=== PATIENT | female | born 1990 | race Caucasian/White ===

== ENCOUNTER 2020-07-11 10:37 | Emergency (ER) | payer OTHER ==
[2020-07-11] MEDS ORDERED: IBUPROFEN 600 MG TABLET PO STA (10:58)
--- NOTE | 2020-07-11 11:09 | ED Physician Documentation ---
History of Present Illness - Stated complaint Stated Complaint: L HAND PX - Chief complaint Chief Complaint: Ext Problem - History obtained from History obtained from: Patient - Additonal information Additional information: 29-year-old woman, previously healthy presents with left first finger pain, sudden in onset while opening a truck bed this morning, occurring concomitant with hyperflexion of the thumb, radiating from the PIP joint to the wrist, worse with flexion and opposition, mild, without associated sensory loss or motor deficit. No other injuries or complaints at this time. Review of Systems Skin: denies: Abrasion (s), Laceration (s) Musculoskeletal: reports: Extremity pain, Joint pain Neurologic: denies: Focal weakness, Numbness PD PAST MEDICAL HISTORY - Past Medical History Past Medical History: Yes Cardiovascular: None Respiratory: Pneumonia Neuro: None Endocrine/Autoimmune: None GI: None BIOMED TECH: None : None HEENT: Chronic vision loss Psych: None Musculoskeletal: None Derm: None - Past Surgical History Past Surgical History: No - Present Medications Home Medications: Ambulatory Orders Medication Instructions Recorded Confirmed No Known Home Medications 07/11/20 07/11/20 - Allergies Allergies/Adverse Reactions: Allergies Allergy/AdvReac Type Severity Reaction Status Date / Time No Known Drug Allergies Allergy Verified 07/11/20 10:44 - Social History Does the pt smoke?: No Smoking Status: Never smoker Does the pt drink ETOH?: No Does the pt have substance abuse?: No - Immunizations Immunizations are current?: Yes - POLST Patient has POLST: No PD ED PE NORMAL - Vitals Vital signs reviewed: Yes - General General: Alert and oriented X 3, No acute distress, Well developed/nourished - Derm Derm: Normal color, Warm and dry - Extremities Extremities: No deformity, Other (Left first finger tender with flexion. Tender to palpation at PIP joint and thenar eminence. Tender with opposition of thumb and fifth finger. Normal strength, movement, sensation. Normal capillary refill. 2+ bilateral radial pulses. Mild swelling noted to thenar eminence.) - Neuro Neuro: Alert and oriented X 3 - Psych Psych: Normal mood, Normal affect Results - Vitals Vitals: Vital Signs - 24 hr 07/11/20 10:41 Temperature 36.4 C L Heart Rate 60 Respiratory 16 Rate Blood Pressure 115/72 O2 Saturation 100 Oxygen O2 Source Room air PD MEDICAL DECISION MAKING - ED course ED course: 29-year-old woman presents with likely ligament strain. Discussed rice therapy. Return precautions given. Patient will follow up with orthopedics if no improvement. Departure - Departure Clinical Impression: Pain in finger Condition: Good Instructions: ED RICE Follow-Up: Shantanu Flynn MD [Provider Admit Priv/Credential] - Comments: You were seen in the emergency department for thumb pain that is likely due to ligament strain. Take ibuprofen 600 mg (Motrin regular strength 3 pills) every 6 hours as needed for pain. Follow the instructions we discussed for symptom care. Return to the emergency department if you have new or worsening symptoms or other concerns. Follow-up with orthopedics if you do not have improvement in 1 week.
--- NOTE | 2020-07-11 11:14 | XRAY Report ---
PROCEDURE: Finger(s) LT INDICATIONS: thumb injury on truck pain TECHNIQUE: PA view of the hand and 2 views of the thumb acquired. COMPARISON: None. FINDINGS: Bones: No acute fractures or dislocations. No suspicious bony lesions. Soft tissues: No suspicious soft tissue calcifications. IMPRESSION: No acute osseous abnormality. If there is clinical concern or persistent symptoms, further evaluation with repeat radiographs or advanced imaging (e.g. CT, MRI) may be obtained for further evaluation. Reviewed by: Onel Blas MD on 07/11/2020 11:13 AM [facility] Approved by: Onel Blas MD on 07/11/2020 11:13 AM PST Station ID: [id number]
[2020-07-11 12:12] VITALS: BP 118/64
== END 2020-07-11 12:12 | disposition home or self-care (01) ==
LOC: ED 10:37
DX: M79.645 Pain in left finger(s) (principal); X50.9XXA Other and unspecified overexertion or strenuous movements or postures, initial encounter; Y93.89 Activity, other specified
CPT/HCPCS: 73140; 99282; 99283; A9270

== ENCOUNTER 2022-02-04 08:27 | Outpatient (CLI) | payer OTHER ==
[2022-02-04 09:13] LABS: GTT GLUCOSE,FASTING 78 mg/dL (70-100)
== END 2022-02-04 08:28 | disposition home or self-care (01) ==
LOC: LAB 08:27
PROVIDERS: ATTEND Nurse Practitioner Obstetrics & Gynecology
DX: O99.810 Abnormal glucose complicating pregnancy (principal)
CPT/HCPCS: 36415; 82951; 82952

== ENCOUNTER 2022-04-18 10:50 | Outpatient (CLI) | payer OTHER ==
[2022-04-18 19:50] LABS: RESPIRATORY SYNCYTIAL VIRUS Negative (Negative)
== END 2022-04-18 23:59 | disposition home or self-care (01) ==
LOC: LAB.N 10:50
PROVIDERS: ATTEND Physician Assistant
DX: R05.9 Cough, unspecified (principal)
CPT/HCPCS: 87280

== ENCOUNTER 2022-04-26 07:26 | Inpatient (IN) | payer OTHER ==
[2022-04-26] MEDS ORDERED: TERBUTALINE 1 MG/ML VIAL SUBQ PRN (08:36)
[2022-04-26] MEDS ORDERED: NIFEdipine 10 MG CAPSULE PO PRN (08:36)
[2022-04-26] MEDS ORDERED: OXYTOCIN/SODIUM CHLORIDE 500 ML IV PRN (08:36)
[2022-04-26] MEDS ORDERED: lidocaine 1% 20 ML MDV ID PRN (08:36)
[2022-04-26] MEDS ORDERED: TRANEXAMIC ACID IN NACL 1,000 MG/100 ML BAG IV PRN (08:36)
[2022-04-26] MEDS ORDERED: hydrALAZINE INJ 20 MG/ML VIAL IVP PRN ×2 (08:36)
[2022-04-26] MEDS ORDERED: CARBOPROST TROMETHAMINE 250 MCG/ML AMP IM PRN (08:36)
[2022-04-26] MEDS ORDERED: fentaNYL 100 MCG/2 ML VIAL IVP PRN (08:36)
[2022-04-26] MEDS ORDERED: miSOPROStoL 200 MCG TABLET BC PRN (08:36)
[2022-04-26] MEDS ORDERED: LABETALOL 20 MG/4 ML SYRINGE IVP PRN ×3 (08:36)
[2022-04-26] MEDS ORDERED: SODIUM CHLORIDE FLUSH 0.9% 10 ML SYRINGE IVP PRN (08:36)
[2022-04-26] MEDS ORDERED: METHYLERGONOVINE 0.2 MG/ML VIAL IM PRN (08:36)
[2022-04-26] MEDS ORDERED: OXYTOCIN 10 UNIT/ML VIAL IM PRN (08:36)
[2022-04-26] MEDS ORDERED: miSOPROStoL 200 MCG TABLET PR PRN (08:36)
--- NOTE | 2022-04-26 08:50 | HISTORY & PHYSICAL EXAMINATION ---
Admit History - Visit Reason Visit Reason: Other - : 2 Parity: 1 Premature: 0 Ectopic: 0 : 1 Care: positive: [facility] Risk/History: positive: None Complications This : positive: None Smoking Status: Never smoker - Mother's Labs Mother's Blood Type: positive: A Mother's RH: positive: Positive GBS: positive: Group B Strep Positive Rubella Status: positive: Immune Meds/Allgy - Home Medications Home Medications: Ambulatory Orders Medication Instructions Recorded Confirmed No Known Home Medications 07/11/20 07/11/20 - Allergies Allergies/Adverse Reactions: Allergies Allergy/AdvReac Type Severity Reaction Status Date / Time No Known Drug Allergies Allergy Verified 07/11/20 10:44 Review of Systems - Constitutional Constitutional: denies: Fatigue, Fever, Chills - Eyes Eyes: denies: Blurred vision, Spots in vision, Dipolpia - Cardiovascular Cariovascular: denies: Irregular heart rate, Palpitations, Chest pain, Edema - Respiratory Respiratory: denies: Cough, Wheezing, SOB at rest - Gastrointestinal Gastrointestinal: denies: Constipation, Diarrhea, Nausea, Vomiting - Genitourinary Genitourinary: denies: Dysuria - Integumentary Integumentary: denies: Rash, Pruritis - Neurological Neurological: denies: Headache Physical - Abdominal Exam Vital Signs: Temp Pulse Resp BP Pulse Ox O2 Flow Rate 37.1 C 04/26/22 07:39 Contraction Frequency (min/apart): occasional Contraction Intensity: positive: Mild Uterine Resting Tone: positive: Soft - Monitoring Heart Rate Baseline: 150 Strip Review: positive: Category I - Presentation Presentation: positive: Vertex - Vaginal Exam Membranes: positive: Membranes intact - Speculum Exam Speculum Exam Performed: positive: No Plan for Labor - Plan For Labor I expect patient to be DC'd or transferred within 96 hours.: Yes Plan for Labor: HPI: This 31yo @ 39.2wks gestation by LMP c/w 10.4wk U/S presented on 04/26/2022 for medical induction of labor secondary to A1 gestational diabetes. She denies vaginal bleeding, leakage of fluid or contractions. She reports +FM. She has maintained tight glycemic control for the duration of her with occasional blood glucose values which are mildly elevated. She has been able to manage with diet only and did not require medication. She has been a [facility] for the duration of her which aside from A1GDM has remained uncomplicated. She had a growth ultrasound at 32wks which was WNL (EFW 83%tile). She will be admitted for active management with pre-induction cervical ripening with misoprostol. SVE was deferred. She is supported by her and mother today. 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 Last pap unsure, 1-2 years ago, No hx of abnormals. Medical Hx: Depression, anxiety, PCS, psoriasis, basal cell carcinoma Surgical Hx: none Family Hx: Father- Skin CA Meds: PNV, zofran, diclegis Allergies: None known Social: , lives with and daughter. Works as a [employer]. [employer] [place]. No tobacco, ETOH or recreational drug use. Caffeine intake minimal. course: A positive, antibody negative Rubella immune; varicella non-immune GBS positive on urine in first trimester Initial U/S @ 10.4wks c/w LMP dating FAS WNL; Posterior placenta, no previa. Size c/w dating 3VC. Glucola 1hr: 149 3hr: 78,168,155,159 Growth U/S @ 32.6wks WNL. EFW 83%tile. Physical exam: Normocephalic, atraumatic Heart RRR w/o M/G/R Lungs CTAB Abdomen gravid, soft, nontender EFW 3800g FHR baseline 150, moderate variability, + accels, no decels Contractions palpate mild occasionally with soft resting tone SVE deferred Bilateral LE's trace edema Mood is good Assessment: 31yo @ 39.1wks gestation by LMP c/w 10.4wk U/S A1GDM GBS positive FHR Category I Plan: Admit for active management/medical induction labor 50mcg BC misoprostol for pre-induction cervical ripening Continuous monitoring Consider AROM in 4hrs with SVE Initiate ampicillin for GBS prophylaxis per protocol with onset of contractions. Anticipate .
[2022-04-26] MEDS: miSOPROStoL 100 MCG TABLET BC SCH ×2 (08:53→13:52)
[2022-04-26] MEDS ORDERED: LACTATED RINGERS 1,000 ML IV SCH (09:00)
[2022-04-26] MEDS ORDERED: AMPICILLIN 2 GM in SODIUM CHLORIDE 0.9% MINIBAG 100 ML IV ONE (09:19)
[2022-04-26 09:44] LABS: BASOPHILS # (AUTO) 0.1 10^3/uL (0.0-0.1); BASOPHILS % (AUTO) 0.6 %; EOSINOPHILS # (AUTO) 0.1 10^3/uL (0.0-0.7); EOSINOPHILS % (AUTO) 0.7 %; HCT - HEMATOCRIT 29.1 % (37.0-47.0); HGB - HEMOGLOBIN 9.5 g/dL (12.0-16.0); LYMPHOCYTES # (AUTO) 1.6 10^3/uL (1.5-3.5); LYMPHOCYTES % (AUTO) 16.3 %; MEAN CORPUSCULAR HEMOGLOBIN 26.8 pg (27.0-31.0); MEAN CORPUSCULAR HGB CONC 32.6 g/dL (32.0-36.0); MEAN PLATELET VOLUME 9.8 fL (7.9-10.8); MONOCYTES # (AUTO) 0.5 10^3/uL (0.0-1.0); MONOCYTES % (AUTO) 4.6 %; NEUTROPHILS # (AUTO) 7.4 10^3/uL (1.5-6.6); PLT - PLATELET COUNT 240 10^3/uL (130-450); RED BLOOD COUNT 3.55 10^6/uL (4.20-5.40); RED CELL DISTRIBUTION WIDTH 14.6 % (12.0-15.0); WHITE BLOOD COUNT 9.8 x10^3/uL (4.8-10.8)
--- NOTE | 2022-04-26 11:52 | ANESTHESIA ---
Pre-Anesthesia VS, & Labs - Diagnosis labor induction - Procedure labor epidural Vital Signs: Temp Pulse Resp BP Pulse Ox O2 Flow Rate 37.1 C 04/26/22 07:39 Height: 5 ft 3 in Weight (kg): 70.307 kg Body Mass Index: 27.4 BMI Classification: Overweight - NPO >8 hours - Is Patient ?: Yes - Lab Results Current Lab Results: Laboratory Tests 04/26/22 11:11: Blood Type Recheck A POSITIVE 04/26/22 08:45: WBC 9.8, RBC 3.55 L, Hgb 9.5 L, Hct 29.1 L, MCV 82.0, MCH 26.8 L , MCHC 32.6, RDW 14.6, Plt Count 240, MPV 9.8, Neut # (Auto) 7.4 H, Lymph # (Auto) 1.6, Millard # (Auto) 0.5, Eos # (Auto) 0.1, Baso # (Auto) 0.1, Absolute Nucleated RBC 0.00, Nucleated RBC % 0.0 04/26/22 08:45: Blood Type A POSITIVE, Antibody Screen NEGATIVE Fish Bones: 04/26/22 08:45 Home Medications and Allergies Active Medications Carboprost Tromethamine (Carboprost Tromethamine 250 Mcg/Ml Amp) 250 mcg IM .ONCE PRN PRN Reason: Hemorrhage Fentanyl (Fentanyl 100 Mcg/2 Ml Vial) 50 mcg IVP Q1H PRN PRN Reason: Severe Pain (score 7-10) Hydralazine HCl (Hydralazine Inj 20 Mg/Ml Vial) 5 - 10 mg IVP Q20M PRN; Protocol PRN Reason: SBP> or= 160 OR DBP> or= 110 Hydralazine HCl (Hydralazine Inj 20 Mg/Ml Vial) 10 mg IVP .ONCE PRN; Protocol PRN Reason: SBP> or= 160 OR DBP> or= 110 Oxytocin/Sodium Chloride (Pitocin/Sodium Chloride) 500 mls @ 999 mls/hr IV PRN PRN; Protocol PRN Reason: POST- HEMORR PREVENTION Tranexamic Acid (Tranexamic 1,000 Mg/100ml-Nacl) 1,000 mg in 100 mls @ 600 mls/hr IV Q30M PRN PRN Reason: EBL >1200mL and within 3hr Lactated Ringer's (Lr) 1,000 mls @ 75 mls/hr IV .[id number] [facility] Ampicillin Sodium 1 gm/ Sodium (Chloride) 100 mls @ 200 mls/hr IV Q4H [facility] Labetalol HCl (Labetalol 20 Mg/4 Ml Syringe) 20 - 80 mg IVP Q10M PRN; Protocol PRN Reason: SBP> or= 160 OR DBP> or= 110 Labetalol HCl (Labetalol 20 Mg/4 Ml Syringe) 20 mg IVP .ONCE PRN; Protocol PRN Reason: SBP> or= 160 OR DBP> or= 110 Labetalol HCl (Labetalol 20 Mg/4 Ml Syringe) 20 - 40 mg IVP Q10M PRN; Protocol PRN Reason: SBP> or= 160 OR DBP> or= 110 Lidocaine HCl (Lidocaine 1% 20 Ml Mdv) 20 ml ID .ONCE PRN PRN Reason: PERINEAL REPAIR Stop: 04/29/22 08:36 Methylergonovine Maleate (Methylergonovine 0.2 Mg/Ml Vial) 0.2 mg IM .ONCE PRN PRN Reason: Hemorrhage Misoprostol (Misoprostol 100 Mcg Tablet) 50 mcg BC Q4H [facility] Last Admin: 04/26/22 08:53 Dose: 50 mcg Misoprostol (Misoprostol 200 Mcg Tablet) 600 mcg BC .ONCE PRN PRN Reason: Hemorrhage Misoprostol (Misoprostol 200 Mcg Tablet) 800 mcg CA .ONCE PRN PRN Reason: Hemorrhage Nifedipine (Nifedipine 10 Mg Capsule) 10 - 20 mg PO Q20M PRN; Protocol PRN Reason: SBP> or= 160 OR DBP> or= 110 Oxytocin (Oxytocin 10 Unit/Ml Vial) 10 unit IM .ONCE PRN PRN Reason: Step One if no IV access. Sodium Chloride (Sodium Chloride Flush 0.9% 10 Ml Syringe) 10 ml IVP PRN PRN PRN Reason: NEEDED PER PROVIDER ORDERS Terbutaline Sulfate (Terbutaline 1 Mg/Ml Vial) 0.25 mg SUBQ .ONCE PRN PRN Reason: Tachystole No Known Home Medications 07/11/20 Allergies/Adverse Reactions: Allergies Allergy/AdvReac Type Severity Reaction Status Date / Time No Known Drug Allergies Allergy Verified 07/11/20 10:44 Anes History & Medical History - Anesthetic History Anesthesia Complications: reports: No previous complications - Medical History Cardiovascular: reports: None Pulmonary: reports: Pneumonia Gastrointestinal: reports: None Urinary: reports: None Neuro: reports: None Musculoskeletal: reports: None Endocrine/Autoimmune: reports: None Blood Disorders: reports: None Skin: reports: None Smoking Status: Never smoker Psychosocial: reports: Substance abuse - Obstetrical History : 2 Parity: 1 Events: reports: None, Gestational diabetes Complications: reports: None Exam General: Alert, Oriented x3, Cooperative Dental: WNL Mouth Opening: Greater than 4 Fingerbreadths Neck Mobility: Normal Mallampati classification: II Thyromental Distance: greater than 6 cm Respiratory: Lungs clear Cardiovascular: Regular rate Plan Anesthesia Type: Epidural Consent for Procedure(s) Verified and Reviewed: Yes Code Status: Attempt Resuscitation ASA classification: 2-Mild systemic disease Is this case an emergency?: No
[2022-04-26] MEDS ORDERED: AMPICILLIN 1 GM in SODIUM CHLORIDE 0.9% MINIBAG 100 ML IV SCH (13:00)
--- NOTE | 2022-04-26 13:45 | PROVIDER PROGRESS NOTE ---
Labor Progress Note - Uterine Monitoring Uterine Monitoring Mode: positive: External toco Contraction Frequency (min/apart): 2-3 Contraction Intensity: positive: Mild to moderate Uterine Resting Tone: positive: Soft - Monitoring Monitor Mode: positive: External ultrasound Heart Rate Baseline: 150 Heart Rate Variability: positive: Minimal (0-5 bpm) Accelerations: positive: Present, 15x15 Decelerations: positive: None Strip Review: positive: Category I - Vaginal Exam Dilation (in cm): 5 Effacement (%): 80 Station: -1 Cervical Position: Midposition - Labor Progress Note Labor Progress Note/Additional Text: S: Coping well with contractions and states she can appreciate the contractions but feels like they are very mild and she can easily walk and talk through them. She denies vaginal bleeding or concerns at this time. Her mom and are both supportive at the bedside. O: FHR baseline 150, moderate variability, + accels, no decels Contractions palpate moderate every 2-3 minutes with soft resting tone SVE 5/80/-1, midposition. Vertex. AROM occurred at 1328 and was noted to be a large amount of clear fluid A: 31yo @ 39.2wks gestation by LMP c/w 10.4wk U/S A1GDM Medical induction of labor Early labor GBS positive FHR Category I P: Initiate ampicilin for GBS prophylaxis per protocol. Continuous monitoring. Expectant management x 4 hours Jacuzzi PRN. Nitrous oxide PRN. Epidural per maternal request. Anticipate .
[2022-04-26] MEDS ORDERED: ROPIVACAINE 0.2% 200 MG/100 ML BAG EP ONE (16:37)
[2022-04-26] MEDS ORDERED: NALOXONE 0.4 MG/ML VIAL IVP PRN (17:14)
[2022-04-26] MEDS ORDERED: ONDANSETRON 4 MG/2 ML VIAL IVP PRN (17:14)
[2022-04-26] MEDS ORDERED: ePHEDrine 50 MG/ML VIAL IVP PRN (17:14)
[2022-04-26] MEDS ORDERED: NALBUPHINE 10 MG/ML AMP IVP PRN (17:14)
[2022-04-26] MEDS ORDERED: METOCLOPRAMIDE 10 MG/2 ML VIAL IVP PRN (17:14)
[2022-04-26] MEDS ORDERED: ROPIVACAINE 0.2% 200 MG/100 ML BAG EP PRN (17:14)
[2022-04-26] MEDS ORDERED: diphenhydrAMINE INJ 50 MG/ML VIAL IVP PRN (17:14)
[2022-04-26] MEDS ORDERED: HYDROCORTISONE 1% CREAM 28 GM TUBE PR PRN (18:44)
[2022-04-26] MEDS ORDERED: WITCH HAZEL/GLYCERIN 1 PAD TOP PRN (18:44)
--- NOTE | 2022-04-26 18:44 | DELIVERY NOTE ---
Delivery Note - Labor Labor: positive: Induced by ARM - Infant Delivery Method Delivery Method: positive: Spontaneous vaginal delivery - Cervical Ripening Method Cervical Ripening Method: positive: Misoprostil - Presentation Presentation: positive: Vertex, JAYCEE - right occiput anterior - Nuchal Cord Nuchal Cord: positive: None - Amniotic Fluid Description Amniotic Fluid Description: positive: Clear - Episiotomy Type Episiotomy Type: positive: None - Laceration Laceration: positive: None - Delivery Outcome Delivery Outcome: positive: Livebirth - [place]: positive: Placed in direct skin contact with mother, Stimulated, Warmed, [place] used sex: positive: Male - Cord Cord: positive: 3 vessels - Placenta Placenta: positive: Intact, Spontaneous - Estimated Blood Loss Estimated Blood Loss (in cc): 150 - Post Delivery Events Post Delivery Events: positive: No post delivery events - Delivery Comments (Free Text/Narrative) Delivery Comments (Free Text/Narrative): Labor: This 31yo @ 39.2wks gestation by LMP c/w 10.4wk U/S presented on 04/26/2022 for medical induction of labor secondary to A1GDM. She was given 1 dose of 50mcg BC misoprostol for pre-induction cervical ripening followed by AROM at 1328. At that time her SVE was 5/80/-1 and vertex. Amniotic fluid was a large amount of clear fluid. Epidural placed upon maternal request. Pt progressed to c/c/+2 at 1731. : Normal SVB of viable male infant on 04/26/2022 @ 1801 in JAYCEE position with left shoulder anterior. Secondary to slow emergence of anterior shoulder the patient was placed in McRobert's position and shoulders easily delivered. There were 50 seconds from of head to of anterior shoulder. No nuchal cord. The was placed on maternal abdomen, stimulated, dried, and placed skin to skin. 's were 9/9 at 1 and 5 minutes respectively. Pitocin administered via IV for hemostatis. The umbilical cord was allowed to stop pulsating at which time it was doubly clamped by CNM and cut by FOB. Cord blood was obtained. 3VC. Fundal massage and gentle cord traction applied for active management of the third stage. Placenta delivered spontaneously and intact at 1811. EBL 150mL. Fourth stage: Uterine fundus firm and there is no excessive bleeding. The perineum, vagina, and cervix inspected and were noted to be intact. initiated. Family bonding well. Both mother and baby were left in stable condition.
[2022-04-26] MEDS ORDERED: FAMOTIDINE 20 MG TABLET PO SCH (20:27)
[2022-04-26] MEDS: ACETAMINOPHEN 500 MG TABLET PO SCH (20:52)
[2022-04-26] MEDS: IBUPROFEN 800 MG TABLET PO SCH (20:53)
[2022-04-26] MEDS: DOCUSATE SODIUM 100 MG CAPSULE PO SCH (20:53)
[2022-04-27] MEDS: IBUPROFEN 800 MG TABLET PO SCH ×3 (02:56→15:26)
[2022-04-27] MEDS: ACETAMINOPHEN 500 MG TABLET PO SCH ×2 (05:35→14:52)
[2022-04-27] MEDS: DOCUSATE SODIUM 100 MG CAPSULE PO SCH (09:21)
--- NOTE | 2022-04-27 10:44 | Discharge Plan ---
Discharge Plan Problem Reviewed?: Yes Disposition: Home, Self Care Condition: Good Diet: Regular Activity Restrictions: No Restrictions Shower Restrictions: No Driving Restrictions: No Weight Bearing: Full Weight Instruction Topics: Vaginal After No Smoking: If you smoke, Please STOP! Call for help. Follow-up with: Sheela Jimenez CNM, [facility] [Provider Admit Priv/Credential] - 1 Week (1.5wk f/u visit on May 05 @ 1:30pm.)
--- NOTE | 2022-04-27 10:51 | DISCHARGE SUMMARY ---
Discharge Summary Condition at Discharge: Good Discharge Disposition: 01 Home, Self Care - HOSPITAL COURSE Hospital Course: Date of Admission: 04/26/2022 Date of Discharge: 04/27/2022 Diagnosis on Admission: 1. 31yo @ 39.1wks gestation by LMP c/w 10.4wk U/S 2. A1GDM 3. GBS positive 4. FHR Category I Diagnosis on Discharge: 1. 31yo PPD#1 s/p TSVD viable male 2. A1GDM 3. 4. Normal recovery Brief History: She is a patient of [facility] who presented on 04/26/2022 for medical induction of labor secondary to A1GDM. She was given 1 dose of 50mcg BC misoprostol for preinduction cervical ripening followed by AROM 4 hours later which was noted to be a moderate amount of clear fluid. She received adequate treatment for GBS prophylaxis. She progressed to spontaneously deliver a viable male on 04/26/2022 at 1801. Apgars were 9/9 at 1 and 5 minutes respectively. EBL 150mL. Perineum intact. She has been doing well in her course. She is ambulating and tolerating a regular diet. She is urinating without difficulty and her lochia is normal. Her pain is well controlled with oral medications. She will be disch arged home today on day #1 with instructions to continue taking her vitamin while and to continue taking ibuprofen and tylenol over the counter as needed for pain management. She intends to follow up with myself in 1 week for routine visit or sooner if needed. She has been given precautions to call if she has any worsening fevers, chills, abdominal pain, increased vaginal bleeding or foul smelling vaginal lochia. Physical Exam: Normocephalic, atraumatic, heart RRR w/o M/G/R, lungs CTAB, abdomen soft and nontender with fundus firm at U, perineum intact, light lochia rubra, bilateral LE's trace edema. Mood is good. - ALLERGIES Allergies/Adverse Reactions: Allergies Allergy/AdvReac Type Severity Reaction Status Date / Time No Known Drug Allergies Allergy Verified 07/11/20 10:44 - MEDICATIONS Home Medications: Ambulatory Orders Medication Instructions Recorded Confirmed No Known Home Medications 07/11/20 07/11/20 - LABS Result Diagrams: 04/26/22 08:45
[2022-04-27] MEDS ORDERED: VARICELLA VACCINE LIVE/PF 1,350 UNIT/0.5 ML VIAL SUBQ ONE (10:52)
[2022-04-27 20:10] VITALS: BP 115/65
--- NOTE | 2022-04-27 23:24 | Labor Flowsheet ---
Labor Flowsheet Datetime Report Generated by CPN: 04/27/2022 23:24 Datetime: 04/27/2022 20:04 VITAL SIGNS NBP Sys/Nicolasa/Mean (mmHg): 115 : 65 : 77 Pulse: 85 SpO2 (%): 98 Datetime: 04/26/2022 18:30 PAIN Pain Scale: 2 Datetime: 04/26/2022 18:15 Stage of : Datetime: 04/26/2022 18:11 MEDICATIONS Pitocin (milliunits): Started @ 50mu Medication Comments: PP pitocin started Datetime: 04/26/2022 18:00 UTERINE ACTIVITY Monitor Mode: External Frequency (min): 1-3 Quality: Strong Duration (sec): 50-100 Pattern: Normal: <= 5 Contractions in 10 Minutes Resting Tone (Palpate): Relaxed FHR Baseline Changes: No Baseline Change Variability: Moderate 6-25 bpm Accelerations: 15X15 Decelerations: Early; Late; Variable Category: Category II COMMUNICATION LaborFlag: Labor Datetime: 04/26/2022 17:42 Antibiotics: Ampicillin IV 1 Gm Datetime: 04/26/2022 17:31 VAGINAL EXAM Dilatation (cm): 10.0 Effacement (%): 100 Station: 2 Exam by: Tony Datetime: 04/26/2022 17:30 ASSESSMENT A FHR Baseline Rate : 130 Datetime: 04/26/2022 17:20 PATIENT CARE Patient Position/Activity: Left Tilt Datetime: 04/26/2022 17:00 Epidural Procedure: Loading Dose Datetime: 04/26/2022 16:46 Anesthesia Comments: threading cath Datetime: 04/26/2022 16:40 Comments: maternal heart recorded due to positioning Datetime: 04/26/2022 16:39 ANESTHESIA Epidural Positioning: Sitting Datetime: 04/26/2022 16:18 I/O Interventions: Up to BR Datetime: 04/26/2022 16:07 Pain Presence: Intermittent Pain Type: Cramping; Contraction Pain Location: Abdomen; Back Pain Relief Measures: Comfort Measures Pain Coping: Breathing Through Contractions Pain Assessment Comments: Nitros started Comfort Measures: Breathing/Relaxation; Family Support Datetime: 04/26/2022 15:52 Patient Care Comments: peanut ball Datetime: 04/26/2022 15:43 Temperature (C): 36.8 Datetime: 04/26/2022 13:54 Contraction Comments: coupling Datetime: 04/26/2022 13:28 Membrane Status: Ruptured Membranes Rupture Method: Artificial Amniotic Fluid Color: Clear Amniotic Fluid Amount: Large Amniotic Fluid Odor: None Cervix, Position: Midposition
== END 2022-04-27 21:30 | disposition home or self-care (01) | DRG 807 ==
LOC: WFO 07:26 → FBP 07:30 → WFO 08:35 → FBP 08:36
PROVIDERS: ADMIT Nurse Practitioner Obstetrics & Gynecology; ATTEND Nurse Practitioner Obstetrics & Gynecology
PROC: 3E0DXGC Introduction of Other Therapeutic Substance into Mouth and Pharynx, External Approach (ICD-10-PCS; principal; 2022-04-26)
PROC: 10E0XZZ Delivery of Products of Conception, External Approach (ICD-10-PCS; 2022-04-26)
PROC: 10907ZC Drainage of Amniotic Fluid, Therapeutic from Products of Conception, Via Natural or Artificial Opening (ICD-10-PCS; 2022-04-26)
DX: O24.420 Gestational diabetes mellitus in childbirth, diet controlled (principal); Z37.0 Single live birth; O99.824 Streptococcus B carrier state complicating childbirth; Z3A.39 39 weeks gestation of pregnancy
CPT/HCPCS: 36415; 85025; 86850; 86900; 86901; A9270; J7120

== ENCOUNTER 2023-09-05 10:22 | Emergency (ER) | payer OTHER ==
[2023-09-05 10:52] VITALS: BP 140/79; O2SAT 100
--- NOTE | 2023-09-05 11:57 | ED Physician Documentation ---
PD HPI OPHTHO - Stated complaint Stated Complaint: LT EYE SWOLLEN - Chief complaint Chief Complaint: Heent - History obtained from History obtained from: Patient - History of Present Illness Timing - duration: Days (2) Timing - details: Gradual onset Pain level max: 2 Pain level now: 2 Location: Left Associated symptoms: Redness, Swelling, Tearing, Discharge. No: FB sensation, Photophobia, Double vision, Decreased vision, Loss of vision, Headache Contributing factors: Wears glasses. No: Chemical exposure, acid, Chemical exposure, base, Blunt trauma, Wears contacts - Additional information Additional information: 32-year-old female presents to the emergency department with left eye redness and yellow drainage. Has been ongoing for the past 2 days, worsened today. Has had rhinorrhea, cough and congestion as well. Had several small children at home. No chemical exposures, no trauma. Wears glasses but not contacts. 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 : None HEENT: Chronic vision loss Psych: None Musculoskeletal: None Derm: None - Past Surgical History Past Surgical History: No - Present Medications Home Medications: Ambulatory Orders Medication Instructions Recorded Confirmed Polymyxin B/Trimeth Ophth Drop 1 drops EACHEYE Q3H 7 Days #1 each 09/05/23 [Polytrim Ophth Drops] - Allergies Allergies/Adverse Reactions: Allergies Allergy/AdvReac Type Severity Reaction Status Date / Time No Known Drug Allergies Allergy Verified 09/05/23 10:48 - Social History Does the pt smoke?: No Smoking Status: Never smoker Does the pt drink ETOH?: No Does the pt have substance abuse?: No - Immunizations Immunizations are current?: Yes - POLST Patient has POLST: No PD ED PE NORMAL - Vitals Vital signs reviewed: Yes - General General: Alert and oriented X 3, No acute distress - HEENT HEENT: Moist mucous membranes, Other (Mild conjunctival injection of the right eye, the left eye has more significant conjunctival injection with yellow drainage. No pain with extraocular movements. No periorbital cellulitis.) - Neck Neck: Supple, no meningeal sign - Cardiac Cardiac: RRR - Derm Derm: Warm and dry - Neuro Neuro: Alert and oriented X 3 Results - Vitals Vitals: Vital Signs - 24 hr 09/05/23 10:46 Temperature 36.0 C L Heart Rate 114 H Respiratory 20 Rate Blood Pressure 140/79 H O2 Saturation 100 Oxygen O2 Source Room air PD Medical Decision Making - ED course Complexity details: considered differential, d/w patient ED course: 32-year-old female with a left eye conjunctivitis. Will place on Polytrim ophthalmic. Will have her follow-up with her doctor for further care if she fails to improve as expected. No evidence of orbital or periorbital cellulitis. No need for oral antibiotics. Patient can utilize warm compresses at home as well. Patient counseled regarding signs and symptoms for which I believe and urgent re-evaluation would be necessary. Patient with good understanding of and agreement to plan and is comfortable going home at this time This document was made in part using voice recognition software. While efforts are made to proofread this document, sound alike and grammatical errors may occur. Departure - Departure Disposition: 01 Home, Self Care Clinical Impression: Conjunctivitis Qualifiers: Conjunctivitis type: acute Acute conjunctivitis type: bacterial Laterality: left Qualified Code(s): H10.32 - Unspecified acute conjunctivitis, left eye Condition: Good Instructions: ED Conjunctivitis Nonspecific Follow-Up: JUD BRODERICK [Primary Care Provider] - Prescriptions: Polymyxin B/Trimeth Ophth Drop [Polytrim Ophth Drops] 1 drops EACHEYE Q3H 7 Days #1 each Comments: Your prescription was sent to [facility] in [place]. Use the antibiotics as prescribed. As your right eye appears to be getting slightly red as well, we will have you treat both eyes. Please follow-up with your doctor in 3 to 4 days if you are not improving, please return if you worsen sooner. Forms: PCP List Discharge Date/Time: 09/05/23 12:00
== END 2023-09-05 12:00 | disposition home or self-care (01) ==
LOC: ED 10:22
DX: H10.32 Unspecified acute conjunctivitis, left eye (principal); B96.89 Other specified bacterial agents as the cause of diseases classified elsewhere
CPT/HCPCS: 99282; 99283